=== PATIENT | male | born 1980 | race African-American/Black ===

== ENCOUNTER 2018-07-10 12:12 | Inpatient (IN) | payer MEDICAID ==
[~2018-07-10] VITALS: Ht 193 cm; Wt 117.0 kg
[2018-07-10 12:12] VITALS: BP_SYST 114
[2018-07-10] MEDS ORDERED: MORPHINE 4 MG/ML INJ. SYRINGE IVP ONE (12:30)
[2018-07-10] MEDS ORDERED: ONDANSETRON HCL 4 MG/2 ML VIAL IVP ONE (12:30)
[2018-07-10 12:46] LABS: BASOPHILS # (AUTO) 0.1 K/uL (0.0-0.2); BASOPHILS % (AUTO) 1.1 % (0.0-2.0); EOSINOPHILS # (AUTO) 0.1 K/uL (0.0-0.4); HEMOGLOBIN 14.1 g/dL (14.0-18.0); LYMPHOCYTES # (AUTO) 1.2 K/uL (1.0-5.5); LYMPHOCYTES % (AUTO) 11.5 % (20.5-51.5); MEAN CORPUSCULAR HEMOGLOBIN 26 pg (27-31); MEAN CORPUSCULAR HGB CONC 33 % (32-36); MEAN CORPUSCULAR VOLUME 79 fL (79.0-98.0); MONOCYTES # (AUTO) 0.6 K/uL (0.0-1.0); MONOCYTES % (AUTO) 6.4 % (1.7-9.3); NEUTROPHILS # (AUTO) 8.1 K/uL (1.8-7.7); PLATELET COUNT (AUTO) 160 K/uL (130-430); RED BLOOD CELL COUNT(AUTO) 5.42 MIL/uL (4.2-6.2); RED CELL DISTRIBUTION WIDTH 14.2 % (9.0-15.0); WHITE BLOOD COUNT (AUTO) 10.1 K/uL (4.8-10.8)
[2018-07-10 12:59] LABS: CALCIUM 9.5 mg/dL (8.4-11.0); CREATININE 1.18 mg/dL (0.55-1.30); POTASSIUM 3.6 mmol/L (3.5-5.1)
[2018-07-10 13:00] LABS: INR 1.9 (0.80-1.20); PROTHROMBIN TIME 19.6 SECS (9.5-12.5)
[2018-07-10 13:04] LABS: ALBUMIN 4.3 g/dL (3.4-4.8); TOTAL BILIRUBIN 1.2 mg/dL (0.0-1.0)
[2018-07-10] MEDS ORDERED: HYDROmorphone 1 MG INJ. 1 MG/ML AMPUL IVP ONE ×2 (13:45→17:15)
[2018-07-10] MEDS ORDERED: MAGNESIUM CITRATE 300 ML ORAL SOLUTION PO ONE (15:00)
[2018-07-10] MEDS ORDERED: GLYCERIN 1 SUPP.RECT (ADULT) RC ONE (15:00)
[2018-07-10] MEDS ORDERED: OXYC20TA55 PO (16:51)
[2018-07-10] MEDS ORDERED: WARF10TA22 PO (16:51)
[2018-07-10] MEDS ORDERED: BISA-79 PO (16:51)
[2018-07-10 17:45] VITALS: BP_SYST 153
[2018-07-10] MEDS ORDERED: HYDROmorphone 1 MG INJ. 1 MG/ML AMPUL IVP PRN (19:15)
[2018-07-10 19:30] VITALS: BP_SYST 140
[2018-07-10] MEDS: HYDROmorphone 2 MG/ML VIAL IVP PRN ×2 (19:45→23:53)
[2018-07-10 20:16] VITALS: BP_SYST 137
[2018-07-10 21:03] LABS: BILIRUBIN,URINE NEGATIVE (NEGATIVE); BLOOD, URINE 3+ (NEGATIVE); CLARITY/URINE CLEAR (CLEAR); COLOR,URINE YELLOW (YELLOW); GLUCOSE,URINE NEGATIVE (NEGATIVE); KETONES,URINE NEGATIVE (NEGATIVE); LEUKOCYTE ESTERASE ,URINE NEGATIVE (NEGATIVE); NITRITE, URINE NEGATIVE (NEGATIVE); PROTEIN URINE 1+ (NEGATIVE); UROBILINOGEN,URINE 0.2 (0.2-1.0)
[2018-07-10 21:12] LABS: BACTERIA,URINE FEW /HPF (None Seen); RBC,URINE >100 /HPF (0-3); WBC,URINE 0-3 /HPF (0-3)
[2018-07-10] MEDS: LORazepam 1 MG TABLET PO PRN (22:21)
[2018-07-11 00:08] VITALS: BP_SYST 140
[2018-07-11] MEDS: HYDROmorphone 2 MG/ML VIAL IVP PRN ×6 (03:54→23:53)
[2018-07-11 08:31] VITALS: BP_SYST 149
[2018-07-11] MEDS ORDERED: POLYETHYLENE GLYCOL 3350, 17 GM/ POWD.PACK PO ONE (10:45)
[2018-07-11] MEDS ORDERED: BISACODYL 5 MG TABLET.DR (DULCOLAX) PO ONE (10:45)
[2018-07-11 12:55] VITALS: BP_SYST 150
[2018-07-11 15:50] LABS: BILIRUBIN,URINE NEGATIVE (NEGATIVE); BLOOD, URINE 3+ (NEGATIVE); CLARITY/URINE CLEAR (CLEAR); COLOR,URINE YELLOW (YELLOW); GLUCOSE,URINE NEGATIVE (NEGATIVE); KETONES,URINE NEGATIVE (NEGATIVE); LEUKOCYTE ESTERASE ,URINE TRACE (NEGATIVE); NITRITE, URINE NEGATIVE (NEGATIVE); PH,URINE 6.5 (5.0-8.0); PROTEIN URINE 2+ (NEGATIVE); UROBILINOGEN,URINE 0.2 (0.2-1.0)
[2018-07-11 15:51] LABS: BACTERIA,URINE FEW /HPF (None Seen); RBC,URINE >100 /HPF (0-3)
[2018-07-11 16:50] VITALS: BP_SYST 146
[2018-07-11] MEDS: WARFARIN SODIUM 5 MG TABLET PO SCH (17:54)
[2018-07-11] MEDS: WARFARIN SODIUM 1 MG TABLET PO SCH (17:55)
[2018-07-11 20:00] VITALS: BP_SYST 153
[2018-07-11] MEDS: LORazepam 1 MG TABLET PO PRN (21:47)
[2018-07-12 00:14] VITALS: BP_SYST 146
[2018-07-12] MEDS: HYDROmorphone 2 MG/ML VIAL IVP PRN ×4 (04:04→16:42)
[2018-07-12 07:54] VITALS: BP_SYST 160
[2018-07-12] MEDS ORDERED: POLYETHYLENE GLYCOL 3350, 17 GM/ POWD.PACK PO SCH (09:00)
[2018-07-12] MEDS ORDERED: BISACODYL 5 MG TABLET.DR (DULCOLAX) PO SCH (09:00)
[2018-07-12] MEDS ORDERED: DEXAMETHASONE SOD PHOSPHATE 4 MG/ML VIAL IVP ONE (11:00)
[2018-07-12] MEDS ORDERED: NA PHOS,M-B/NA PHOS,DI-BA 118 ML (FLEET ENEMA) RC ONE (16:45)
[2018-07-12 16:50] VITALS: BP_SYST 166
[2018-07-12 17:14] VITALS: BP_SYST 145
[2018-07-12] MEDS: WARFARIN SODIUM 1 MG TABLET PO SCH (17:40)
[2018-07-12] MEDS: WARFARIN SODIUM 5 MG TABLET PO SCH (17:40)
[2018-07-12] MEDS ORDERED: DEXAMETHASONE SOD PHOSPHATE 4 MG/ML VIAL IVP SCH (18:00)
== END 2018-07-12 19:23 | disposition short-term general hospital (02) | DRG 347 ==
LOC: SED 12:12 → STU 17:04 → SMU 07-12 13:23
PROVIDERS: ADMIT Internal Medicine Hospice and Palliative Medicine; ATTEND Internal Medicine Hospice and Palliative Medicine
DX: M54.5 Low back pain (principal); M32.9 Systemic lupus erythematosus, unspecified; G89.29 Other chronic pain; W19.XXXA Unspecified fall, initial encounter; R31.9 Hematuria, unspecified; I10 Essential (primary) hypertension; K59.00 Constipation, unspecified; Z79.01 Long term (current) use of anticoagulants; Z79.891 Long term (current) use of opiate analgesic; Z86.711 Personal history of pulmonary embolism; Y93.89 Activity, other specified; Y92.89 Other specified places as the place of occurrence of the external cause; Y99.8 Other external cause status; Z79.899 Other long term (current) drug therapy
CPT/HCPCS: 36415; 71045; 72128; 72131; 72148; 80048; 80053; 81000-TC; 85025; 85610-TC; 96374; 96375; 99285; J1100; J1170; J2270; J2405

== ENCOUNTER 2021-05-22 11:17 | Emergency (ER) | payer MEDICAID ==
[~2021-05-22] VITALS: Ht 188 cm; Wt 117.9 kg
[~2021-05-22 11:17] MED LIST: BISA-79 PO; OXYC20TA55 PO; WARF10TA22 PO
[2021-05-22] MEDS ORDERED: MORPHINE 2 MG/ML INJ. SYRINGE IVP ONE ×2 (11:45→13:45)
[2021-05-22] MEDS ORDERED: ASPIRIN 81 MG TAB.CHEW PO ONE (12:00)
[2021-05-22] MEDS ORDERED: ASPIRIN 81 MG TAB.CHEW ONE (12:02)
[2021-05-22 12:04] LABS: BASOPHILS % (AUTO) 0.5 % (0.0-2.0); HEMATOCRIT 37.5 % (36-54); HEMOGLOBIN 12.3 g/dL (14.0-18.0); LYMPHOCYTES # (AUTO) 0.7 K/uL (1.0-5.5); LYMPHOCYTES % (AUTO) 22.4 % (20.5-51.5); MEAN CORPUSCULAR HEMOGLOBIN 24 pg (27-31); MEAN CORPUSCULAR HGB CONC 33 % (32-36); MEAN CORPUSCULAR VOLUME 74 fL (79.0-98.0); MONOCYTES # (AUTO) 0.4 K/uL (0.0-1.0); MONOCYTES % (AUTO) 12.4 % (1.7-9.3); NEUTROPHILS # (AUTO) 1.9 K/uL (1.8-7.7); NEUTROPHILS % (AUTO) 64.7 % (40.0-70.0); PLATELET COUNT (AUTO) 73 K/uL (130-430); RED BLOOD CELL COUNT(AUTO) 5.03 MIL/uL (4.2-6.2); RED CELL DISTRIBUTION WIDTH 14.7 % (9.0-15.0); WHITE BLOOD COUNT (AUTO) 2.9 K/uL (4.8-10.8)
[2021-05-22 12:14] LABS: CALCIUM 8.3 mg/dL (8.4-11.0); CREATININE 1.38 mg/dL (0.55-1.30); POTASSIUM 3.5 mmol/L (3.5-5.1)
[2021-05-22 12:18] LABS: INR 1.5 (0.80-1.20); PROTHROMBIN TIME 15.4 SECS (9.5-12.5)
[2021-05-22 12:19] LABS: ALBUMIN 3.4 g/dL (3.4-4.8); TOTAL BILIRUBIN 0.8 mg/dL (0.0-1.0)
[2021-05-22] MEDS ORDERED: IOHEXOL 350 mgI/mL, 150 ML INFUS..BTL IV ONE (12:37)
[2021-05-22] MEDS ORDERED: AZITHROMYCIN 500 MG in NS 250 ML IV ONE (13:15)
[2021-05-22] MEDS ORDERED: cefTRIAXone 1 GM in D5W 50 ML IV ONE (13:15)
[2021-05-22] MEDS ORDERED: cefTRIAXone 1 GM VIAL ONE (13:31)
[2021-05-22] MEDS ORDERED: AZITHROMYCIN 500 MG/VIAL (ZITHROMAX) IV ONE (13:31)
[2021-05-22] MEDS ORDERED: NITROGLYCERIN 0.4 MG TAB.SUBL SL ONE (13:45)
[2021-05-22] MEDS ORDERED: NITROGLYCERIN 1 INCH (GM) OINT. TP ONE (14:30)
[2021-05-22] MEDS ORDERED: NACL 0.9% 1,000 ML IV ONE (14:30)
[2021-05-22 15:50] LABS: BILIRUBIN,URINE NEGATIVE (NEGATIVE); CLARITY/URINE CLEAR (CLEAR); COLOR,URINE YELLOW (YELLOW); GLUCOSE,URINE NEGATIVE (NEGATIVE); KETONES,URINE NEGATIVE (NEGATIVE); LEUKOCYTE ESTERASE ,URINE NEGATIVE (NEGATIVE); NITRITE, URINE NEGATIVE (NEGATIVE); PH,URINE 6.5 (5.0-8.0); PROTEIN URINE 1+ (NEGATIVE)
[2021-05-22 16:08] LABS: BLOOD, URINE TRACE (NEGATIVE)
[2021-05-22 16:09] LABS: RBC,URINE 0-3 /HPF (0-3); WBC,URINE 0-3 /HPF (0-3)
[2021-05-22 16:10] LABS: BACTERIA,URINE FEW /HPF (None Seen); MUCUS,URINE None Seen /LPF (None Seen)
[2021-05-22 23:20] VITALS: BP_SYST 135
== END 2021-05-22 23:20 | disposition short-term general hospital (02) ==
LOC: SED 11:17
DX: U07.1 COVID-19 (principal); J12.82 Pneumonia due to coronavirus disease 2019; R07.89 Other chest pain; R04.2 Hemoptysis; D68.9 Coagulation defect, unspecified; I10 Essential (primary) hypertension; Z88.8 Allergy status to other drugs, medicaments and biological substances; Z79.899 Other long term (current) drug therapy
CPT/HCPCS: 36415; 71045; 71275; 76376; 80053; 81000; 83605; 83880; 84484; 85025; 85610; 85651; 85730; 86886; 86900; 86901; 87040; 87426; 93005; 96361; 96365; 96368; 96375; 96376; 99291; J0456; J0696; J2270; J7030; Q9967